=== PATIENT | male | born 1975 | race Caucasian/White ===

== ENCOUNTER 2019-03-02 10:44 | Outpatient (CLI) | payer BC ==
--- NOTE | 2019-03-02 11:26 | ULT ---
US Testicular W Doppler History: Scrotal pain Comparison: None. Findings: Real-time grayscale, color, and spectral analysis of the testicles was performed. Adequate vascular flow to both testicles which is symmetric and normal. No mass. Echotexture is cheryl l. Both epididymides are normal. Small left varicocele. Impression: Small left varicocele otherwise unremarkable exam.
== END 2019-03-02 10:45 | disposition home or self-care (01) ==
LOC: SCSULT 10:44
PROVIDERS: ATTEND Family Medicine
DX: N50.82 Scrotal pain (principal); I86.1 Scrotal varices
CPT/HCPCS: 76870; 93976

== ENCOUNTER 2020-06-13 07:30 | Outpatient (CLI) | payer BC ==
--- NOTE | 2020-06-13 08:35 | MRI ---
MRI of thecervical spine without contrast: 06/13/2020 COMPARISON:None available HISTORY:Neck pain, pain radiating into both shoulders TECHNIQUE: Multiplanar multisequence MR imaging of thecervical spine without contrast Findings:The sagittal STIR imaging demonstrates no focal area of osseous marrow edema. No focal area of abnormal signal intensity is identified within the cervical cord. The craniocervical junction, atlantoaxial interspace, and cervicothoracic junction demonstrate no acu te findings. Cervical vertebral body height and alignment appears within normal limits. No prevertebral soft tissue abnormality noted. C2-3: Mild facet and uncovertebral osteophyte formation on the right. No significant central canal or neural foraminal stenosis. C3-4: No significant central canal or neural foraminal stenosis. C4-5: There is disc space narrowing with disc desiccation and mild anterior osteophyte formation. The re is a small disc protrusion in the right paracentral region with mild associated central canal stenosis. There is no significant left neural foraminal stenosis. There is mild right neural foramina l stenosis on the basis of disc protrusion and uncovertebral osteophyte formation. C5-6: No significant central canal or neural foraminal stenosis. C6-7: No significant central canal or neural foraminal stenosis. C7-T1: No significant central canal or neural foraminal stenosis. No focal area of abnormal signal intensity identified within the cervical cord. IMPRESSION:Cervical spine degenerative change as detailed above.
== END 2020-06-13 07:31 | disposition home or self-care (01) ==
LOC: BICMRI 07:30
PROVIDERS: ATTEND Family Medicine
DX: M54.2 Cervicalgia (principal); M25.511 Pain in right shoulder; G89.29 Other chronic pain; R29.898 Other symptoms and signs involving the musculoskeletal system; R20.2 Paresthesia of skin; M47.812 Spondylosis without myelopathy or radiculopathy, cervical region
CPT/HCPCS: 72141